=== PATIENT | male | born 1940 ===

== ENCOUNTER 2016-06-07 08:17 | Outpatient (CLI) | payer MEDICARE ==
[2016-06-07 12:23] LABS: #Eosinphils 0.1 thou/uL (0.0-0.7); #Lymphocytes 2.1 thou/uL (1.20-3.40); #Monocytes 0.6 thou/uL (0.11-0.59); #Neutrophils 2.4 thou/uL (1.40-6.50); %Basophils 0.6 % (0.0-1.0); %Eosinophils 1.8 % (0.0-10.0); %Lymphocytes 40.7 % (21.0-51.0); %Monocytes 11.8 % (0.0-10.0); Hematocrit 46.7 % (42.0-52.0); Mean Platelet Volume 8.1 fL (7.4-10.4); Red Blood Cell (RBC) Count 5.04 mill/uL (4.70-6.10); White Blood Cell (WBC) Count 5.3 thou/uL (4.8-10.8)
[2016-06-07 12:40] LABS: ALT (SGPT) 26 U/L (0-55); AST (SGOT) 23 U/L (5-34); Alkaline Phosphatase 50 U/L (40-150); Anion Gap 17 mmol/L (10-20); BUN (Urea Nitrogen) 17 mg/dL (8.4-25.7); Bilirubin, Total 0.7 mg/dL (0.2-1.2); Calc. Creatinine Clearance 0 mL/min (70-130); Calcium 9.3 mg/dL (7.8-10.44); Carbon Dioxide 23 mmol/L (23-31); Chloride 103 mmol/L (98-107); Estimated GFR-MDRD 66; Globulin 2.9 g/dL (2.4-3.5); LDL Cholesterol, Calculated 145 mg/dL; Protein, Total 7.4 g/dL (5.8-8.1)
[2016-06-07 12:45] LABS: Bilirubin Negative (Negative); Blood, Urine Negative (Negative); Glucose, Urine (Dipstick) Negative (Negative); Ketone, Urine Trace mg/dL (Negative); Nitrite Negative (Negative); Protein, Urine (Dipstick) 30 mg/dL (Neg-Trace); Urobilinogen 0.2 mg/dL (0.2-1.0)
[2016-06-07 13:13] LABS: Bacteria/HPF Rare-Few HPF (None Seen); RBC/HPF None Seen HPF (0-3); Squamous Epithelial 0-3 HPF (0-3); WBC/HPF 0-3 HPF (0-3)
== END 2016-06-07 08:18 ==
LOC: NAVSJIPCSP 08:17
PROVIDERS: ATTEND Internal Medicine
DX: Z12.5 Encounter for screening for malignant neoplasm of prostate (principal); E78.5 Hyperlipidemia, unspecified; I11.9 Hypertensive heart disease without heart failure
CPT/HCPCS: 36415; 80053; 80061; 81001; 85025; G0103

== ENCOUNTER 2016-12-05 09:21 | Outpatient (CLI) | payer MEDICARE ==
[2016-12-05 12:37] LABS: Cardiac Risk 5.2 (Less than 4.5)
== END 2016-12-05 09:22 | disposition home or self-care (01) ==
LOC: NAVSJIPCSP 09:21
PROVIDERS: ATTEND Internal Medicine
DX: Z23 Encounter for immunization (principal); E78.5 Hyperlipidemia, unspecified
CPT/HCPCS: 36415; 80061